=== PATIENT | male | born 1940 | race African-American/Black ===

== ENCOUNTER → 2018-09-18 | Day surgery (SDC) | payer MEDICARE, BC ==
[~2018-09-18] MED LIST: ASPIR 8181 MG PO; ATENOLOL-CHLOR1 EAC1 PO; CRESTOR10 MG PO; DEXAMETHASONE SOD PHOS INJ 4 MG/ML VIAL ONE; EPHEDRINE SULFATE INJ 50 MG/10 ML SYR ONE; FENTANYL CITRATE/PF 100MCG/2 ML INJ ONE; IOPAMIDOL 610MG/1ML 300 MG/ML VIAL IV ONE; IPRATROPIUM BROMIDE; KETOROLAC TROMETHAMINE 30 MG/ML VIAL ONE; LEVOFLOXACIN 500MG/D5W 100ML 100 ML IV ONE; LIDOCAINE HCL 2% LOCAL INJ 5 ML SDV VIAL INJ ONE; LOSARTAN POTASS25 MG PO; METFORMIN HCL500 MG PO; MIDAZOLAM HCL 2 MG/2 ML VIAL ONE; ONDANSETRON HCL INJ 2 MG/ML VIAL ONE; PANTOPRAZOLE SO40 MG PO; POTASSIUM CHLO10 ME1 PO; PROPOFOL IV EMULSION 10 MG/ML 20 ML VIAL ONE; SEVOFLURANE INHAL SOLN 250 ML PEN BTL ONE
--- OUTSIDE RECORDS SUMMARY | 2018-09-18 10:15 | XMS REPORT | Clinical Summary ---
Author Author [facility] Organization [facility] Address Unknown Phone Unavailable Care Team Providers Care Etcher [employer] Name Role Phone Jacob Aparicio MD PCP Allergies Comments Active Allergy Reactions Severity Noted Date Penicillins Rash High 01/21/2016 Medications End Date Status Medication Sig Dispensed Refills Start Date Active aspirin 81 mg chewable aspirin 81 mg 0 tablet chewable 1 tablet Active tamsulosin (FLOMAX) 0.4 Take 1 30 capsule 0 mg capsule,extended capsule (0.4 8 release 24hr mg total) by mouth daily. 10/09/2018 Active metFORMIN (FORTAMET) 500 Take 1 tablet 90 tablet 1 mg 24 hr tablet (500 mg 8 total) by mouth daily with breakfast for 90 days. Active rosuvastatin (CRESTOR) 40 Take 1 tablet 90 tablet 1 MG tablet (40 mg total) 8 by mouth daily. Active potassium chloride Take 1 tablet 180 tablet 1 (K-DUR,KLOR-CON) 10 MEQ (10 mEq 8 CR tablet total) by mouth 2 (two) times a day. Active atenolol-chlorthalidone Take 1 tablet 90 tablet 1 (TENORETIC) 50-25 mg per by mouth 8 tablet daily. Active blood-glucose meter Test twice a 100 each 11 (CONTOUR NEXT ONE METER) day 8 miscIndications: Type 2 diabetes mellitus without complication, without long-term current use of insulin (HCC) Active blood sugar diagnostic Test twice a 100 strip 11 strips (CONTOUR NEXT TEST day 8 STRIPS) strip test stripsIndications: Type 2 diabetes mellitus without complication, without long-term current use of insulin (HCC) Active lancets (ULTRA THIN Test twice a 100 each 11 11/01/201 LANCETS) 30 gauge day 8 miscIndications: Type 2 diabetes mellitus without complication, without long-term current use of insulin ([facility]) Active losartan (COZAAR) 25 MG TAKE 1 30 tablet 0 tablet TABLET(25 MG) 8 BY MOUTH DAILY 2018 Discontinued rosuvastatin (CRESTOR) 40 Take 1 90 tablet 1 MG tablet tablet(s) 7 every day by oral route for 90 days. 2018 Discontinued potassium chloride Take 1 tablet 180 tablet 1 (K-DUR,KLOR-CON) 10 MEQ (10 mEq 7 CR tablet total) by mouth 2 (two) times a day. 2018 Discontinued atenolol-chlorthalidone Take 1 90 tablet 1 (TENORETIC) 50-25 mg per tablet(s) 7 tablet every day by oral route for 90 days. 06/12/2018 Discontinued sildenafil (REVATIO) 20 Take 5 60 tablet 11 mg tablet tablets (100 7 mg total) by mouth daily as needed (E.D.). 2018 Discontinued lisinopril Take 1 tablet 30 tablet 0 (PRINIVIL,ZESTRIL) 2.5 mg (2.5 mg 7 tablet total) by mouth daily. 05/17/2018 Discontinued atenolol-chlorthalidone Take 1 90 tablet 1 (TENORETIC) 50-25 mg per tablet(s) 8 tablet every day by oral route for 90 days. 07/11/2018 Discontinued lisinopril Take 1 tablet 30 tablet 0 (PRINIVIL,ZESTRIL) 2.5 mg (2.5 mg 8 tablet total) by mouth daily. 05/17/2018 Discontinued potassium chloride Take 1 tablet 180 tablet 1 (K-DUR,KLOR-CON) 10 MEQ (10 mEq 8 CR tablet total) by mouth 2 (two) times a day. 05/17/2018 Discontinued rosuvastatin (CRESTOR) 40 Take 1 90 tablet 1 MG tablet tablet(s) 8 every day by oral route for 90 days. 07/11/2018 Discontinued rosuvastatin (CRESTOR) 40 TAKE 1 TABLET 90 tablet 1 MG tablet BY MOUTH 8 EVERY DAY 07/11/2018 Discontinued potassium chloride TAKE 1 TABLET 180 tablet 1 (K-DUR,KLOR-CON) 10 MEQ BY MOUTH TWO 8 CR tablet TIMES DAILY 07/18/2018 Discontinued atenolol-chlorthalidone TAKE 1 TABLET 90 tablet 1 (TENORETIC) 50-25 mg per BY MOUTH 8 tablet EVERY DAY 08/08/2018 Discontinued lisinopril Take 1 tablet 90 tablet 1 (PRINIVIL,ZESTRIL) 2.5 mg (2.5 mg 8 tablet total) by mouth daily. 09/10/2018 Discontinued losartan (COZAAR) 25 MG Take 1 tablet 30 tablet 0 tablet (25 mg total) 8 by mouth daily. 08/20/2018 methylPREDNISolone follow 21 tablet 0 (MEDROL, LEYLA,) 4 mg package 8 tabletIndications: directions Chronic cough 09/14/2018 benzonatate (TESSALON) Take 1 30 capsule 0 200 MG capsule (200 8 capsuleIndications: mg total) by Chronic cough mouth 3 (three) times a day as needed for cough for up to 30 days. Active Problems Problem Noted Date BMI 22.0-22.9, adult 07/11/2018 Need for immunization against influenza 07/11/2018 BPH with urinary obstruction 2018 BMI 23.0-23.9, adult 2018 Influenza vaccination administered at current visit 07/03/2017 Erectile dysfunction 07/03/2017 Impacted cerumen of right ear 2017 Pneumococcal vaccination administered at current visit 2017 Leukopenia 2017 Gastroesophageal reflux disease without esophagitis 2017 Type 2 diabetes mellitus without complication, without long-term current 2017 use of insulin Overview: iet controlled Common cold 10/06/2013 Benign essential HTN 09/06/2011 Mixed hyperlipidemia 09/06/2011 Encounters Care Team Description Date Type Specialty Jacob Aparicio MD 09/10/2018 Refill Family Medicine Robby Lewis MD Enlarged prostate with urinary obstruction 09/09/2018 Hospital Radiology Encounter Jacob Aparicio MD Chronic cough 08/19/2018 Hospital Radiology Encounter Robby Lewis MD Enlarged prostate with urinary obstruction (Primary Dx) 08/19/2018 Transcribe Access Orders Mily Monroe MA Type 2 diabetes mellitus without complication, without long-term current use of insulin (HCC) (Primary Dx); Chronic cough 08/15/2018 Orders Only [facility] Medicine Aida Quan MA 08/14/2018 Telephone [facility] Medicine Mily Monroe MA 08/08/2018 Orders Only Family Medicine Mily Monroe MA 08/08/2018 Orders Only Family Medicine Rajni Ayoub MA 07/18/2018 Telephone [facility] Medicine Rajni Ayoub MA 07/18/2018 Refill Family Medicine Charlene Polo NP Benign essential HTN (Primary Dx); Type 2 diabetes mellitus without complication, without long-term current use of insulin; BPH with urinary obstruction; Mixed hyperlipidemia; BMI 22.0-22.9, adult; Need for immunization against influenza 07/11/2018 Office Visit Family Medicine Jacob Aparicio MD 07/04/2018 Orders Only Family Medicine Aida Quan MA 06/20/2018 Telephone Family Medicine Jacob Aparicio MD Abnormal weight loss (Primary Dx) 06/12/2018 Office Visit Family Jacob Tsai MD 05/17/2018 Refill Family Medicine Jacob Aparicio MD Cyst, jaw 03/05/2018 Hospital Radiology Encounter Rajni Ayoub MA Cyst, jaw (Primary Dx) 02/28/2018 Orders Only [facility] Medicine Mily Monroe MA Essential hypertension, benign (Primary Dx) 02/27/2018 Orders Only Family Jacob Tsai MD Cyst, jaw (Primary Dx) 02/27/2018 Orders Only Family Jacob Tsai MD 02/27/2018 Telephone Family Jacob Tsai MD Benign essential HTN (Primary Dx); Type 2 diabetes mellitus without complication, without long-term current use of insulin; BPH with urinary obstruction; Mixed hyperlipidemia; BMI 23.0-23.9, adult 2018 Office Visit Family Medicine after 09/17/2017 Immunizations Name Dates Previously Given Next Due FLUZONE HIGH-DOSE PF 07/11/2018, 07/03/2017, 07/19/2016 Influenza Split 09/19/2011 Influenza Trivalent 10/01/2012, 08/26/2010 Pneumococcal Conjugate 11/03/2015 13-Valent Pneumococcal 02/16/2009 Polysaccharide Family History Medical History Relation Name Comments Cancer Father Diabetes Mother Relation Name Status Comments Father lung Mother Alive Social History Date Tobacco Use Types Packs/Day Years Used Never Smoker Smokeless Tobacco: Never Used Alcohol Use Drinks/Week oz/Week Comments No Sex Assigned at Date Recorded Not on file Industry Job Start Date Occupation Not on file Not on file Not on file Travel End Travel History Travel Start No recent travel history available. Last Filed Vital Signs Time Taken Vital Sign Reading 07/11/2018 2:03 PM CDT Blood Pressure 147/80 07/11/2018 2:03 PM CDT Pulse 66 07/11/2018 2:03 PM CDT Temperature 36.7 C (98 F) 07/11/2018 2:03 PM CDT Respiratory Rate 16 07/11/2018 2:03 PM CDT Oxygen Saturation 98% - Inhaled Oxygen - Concentration 07/11/2018 2:03 PM CDT Weight 74.3 kg (163 lb 12.8 oz) 07/11/2018 2:03 PM CDT Height 182.9 cm (6') 07/11/2018 2:03 PM CDT Body Mass Index 22.22 Plan of Treatment Care Team Description Date Type Specialty Jacob Aparicio MD [address] [place] [address] 10/01/2018 Office Visit Family Medicine Health Maintenance Due Date Last Done Comments SHINGRIX VACCINE (1 of 2) 01/02/1992 ZOSTER VACCINE 2002 DIABETIC RETINAL EYE EXAM 12/27/2018 12/27/2017 DIABETIC FOOT EXAM 2019 2018, 2018 URINE MICROALBUMIN 07/04/2019 07/04/2018, 06/12/2018, 12/21/2017, Additional history exists PNEUMOCOCCAL Completed 02/16/2009, 02/16/2009 POLYSACCHARIDE VACCINE AGE 65 AND OVER PNEUMOCOCCAL-13 Completed 11/03/2015 INFLUENZA VACCINE Completed 07/11/2018, 07/03/2017, 07/19/2016, Additional history exists Procedures Comments Procedure Name Priority Date/Time Associated Diagnosis US PROSTATE Routine 09/09/2018 Enlarged prostate with 11:30 AM OUTSOLE SPLICER urinary obstruction XR CHEST 2 VW Routine 08/19/2018 Chronic cough 3:45 PM OUTSOLE SPLICER HEMOGLOBIN A1C Routine 07/04/2018 9:11 AM CDT CBC WITH PLATELET AND Routine 07/04/2018 DIFFERENTIAL 9:11 AM CDT URINALYSIS, AUTOMATED Routine 07/04/2018 WITH MICROSCOPY 9:11 AM CDT MICROALBUMIN / CREATININE Routine 07/04/2018 URINE RATIO 9:11 AM CDT HEPATIC FUNCTION PANEL Routine 07/04/2018 9:11 AM CDT BASIC METABOLIC PANEL Routine 07/04/2018 9:11 AM CDT LIPID PANEL Routine 07/04/2018 9:11 AM CDT THYROID STIMULATING Routine 06/12/2018 HORMONE 9:02 AM CDT CBC WITH PLATELET AND Routine 06/12/2018 BPH with urinary DIFFERENTIAL 9:02 AM CDT obstruction HEMOGLOBIN A1C Routine 06/12/2018 Type 2 diabetes mellitus 9:02 AM CDT without complication, without long-term current use of insulin MICROALBUMIN / CREATININE Routine 06/12/2018 Type 2 diabetes mellitus URINE RATIO 9:02 AM CDT without complication, without long-term current use of insulin HEPATIC FUNCTION PANEL Routine 06/12/2018 Mixed hyperlipidemia 9:02 AM CDT LIPID PANEL Routine 06/12/2018 Mixed hyperlipidemia 9:02 AM CDT BASIC METABOLIC PANEL Routine 06/12/2018 Benign essential HTN 9:[address] MAXILLOFACIAL WO Routine 03/05/2018 Cyst, jaw CONTRAST 12:52 PM CDT URINALYSIS, AUTOMATED Routine 2018 WITH MICROSCOPY 2:22 PM CDT PROSTATE SPECIFIC ANTIGEN Routine 2018 BPH with urinary 2:22 PM CDT obstruction URINE CULTURE Routine 2018 2:22 PM CDT CBC WITH PLATELET AND Routine 12/21/2017 Other decreased white DIFFERENTIAL 8:54 AM OUTSOLE SPLICER blood cell (WBC) count MICROALBUMIN / CREATININE Routine 12/21/2017 Type 2 diabetes mellitus URINE RATIO 8:54 AM OUTSOLE SPLICER without complication, without long-term current use of insulin BASIC METABOLIC PANEL Routine 12/21/2017 Benign essential HTN 8:54 AM OUTSOLE SPLICER HEMOGLOBIN A1C Routine 12/21/2017 Type 2 diabetes mellitus 8:54 AM OUTSOLE SPLICER without complication, without long-term current use of insulin after 09/17/2017 Results * US Prostate (09/09/2018 11:30 AM OUTSOLE SPLICER) Narrative Performed At PROCEDURE:US PROSTATE RADIANT CLINICAL HISTORY:N40.1 Benign prostatic hyperplasia with lower urinary tract symptoms, N13.8 Other obstructive and reflux uropathy, N40.1 COMPARISON:None. TECHNIQUE: A transrectal examination of the prostate gland was performed in transverse and sagittal views with color-flow Doppler interrogation. The seminal vesicles were also interrogated. FINDINGS: The prostate gland measures 6.2 x 5.1 x 3.6. The prostatic parenchyma is heterogeneous in echotexture, with a few small cystic spaces and coarse calcifications. There is no definite focal suspicious solid mass identified within the limitations of sonographic technique. There is no gross abnormality of the visualized seminal vesicles. IMPRESSION: Prostatomegaly, likely related to benign prostatic hyperplasia. No definite suspicious solid mass. [facility]-[id number] Procedure Note Interface, Radiology Results Incoming - 09/09/2018 8:36 PM OUTSOLE SPLICER PROCEDURE: US PROSTATE CLINICAL HISTORY: N40.1 Benign prostatic hyperplasia with lower urinary tract symptoms, N13.8 Other obstructive and reflux uropathy, N40.1 COMPARISON: None. TECHNIQUE: A transrectal examination of the prostate gland was performed in transverse and sagittal views with color-flow Doppler interrogation. The seminal vesicles were also interrogated. FINDINGS: The prostate gland measures 6.2 x 5.1 x 3.6. The prostatic parenchyma is heterogeneous in echotexture, with a few small cystic spaces and coarse calcifications. There is no definite focal suspicious solid mass identified within the limitations of sonographic technique. There is no gross abnormality of the visualized seminal vesicles. IMPRESSION: Prostatomegaly, likely related to benign prostatic hyperplasia. No definite suspicious solid mass. [facility]-[id number] Performing Organization Address [facility] Phone Number [facility] [address] [place] [address] * XR Chest 2 Vw (08/19/2018 3:45 PM OUTSOLE SPLICER) Narrative Performed At [facility]INICAL IND[facility]:R05 Cough, chronic cough COMPARISON:10/03/2016 IMPRESSION: The lungs are clear without acute cardiopulmonary disease. Heart and mediastinal contours are within normal limits. Bones are unremarkable. No active disease or change. Thank you for allowing us to participate in the care of your patient. [facility]-[id number] Procedure Note Interface, Radiology Results Incoming - 08/19/2018 3:51 PM OUTSOLE SPLICER XR CHEST 2 VW CLINICAL INDICATION: R05 Cough, chronic cough COMPARISON: 10/03/2016 IMPRESSION: The lungs are clear without acute cardiopulmonary disease. Heart and mediastinal contours are within normal limits. Bones are unremarkable. No active disease or change. Thank you for allowing us to participate in the care of your patient. [facility]-[id number] Performing Organization Address [facility] Hospital[facility] Phone Number [facility] [address] [place] [address] * Microalbumin / creatinine urine ratio (07/04/2018 9:11 AM CDT) Only the most recent of 3 results within the time period is included. Creatinine, urine, random 114 20 - 320 mg/dL [facility] [place] Microalbumin, urine 1.9 See Note: mg/dL [facility] Comment: [place] Reference Range: Reference Range Not established Microalbumin/creatinine 17 <30 mcg/mg creat [facility] ratio Comment: [place] The ADA defines abnormalities in albumin excretion as follows: Category Result (mcg/mg creatinine) Normal <30 Microalbuminuria 30-299 Clinical albuminuria > GM=278 The ADA recommends that at least two of three specimens collected within a 3-6 month period be abnormal before considering a patient to be within a diagnostic category. Narrative Performed At FASTING:YES [facility] FASTING: YES Resulting Agency Comment Performing Organization Information: Site ID: [id number] Name: [facility] Address: [address] [place] [phone] Director: Deyanira Quiroz Performing Organization Address City/[facility] Phone Number [employer] [place] [address] * Urinalysis, automated with microscopy (07/04/2018 9:11 AM CDT) Only the most recent of 2 results within the time period is included. Color, UA YELLOW YELLOW [facility] [place] Appearance CLEAR CLEAR [facility] [place] Specific gravity, urine 1.024 1.001 - 1.035 [facility] [place] pH, urine 7.0 5.0 - 8.0 [facility] [place] Glucose, urine NEGATIVE NEGATIVE [facility] [place] Bilirubin, UA NEGATIVE NEGATIVE [facility] [place] Ketones, UA NEGATIVE NEGATIVE [facility] [place] Occult blood, urine NEGATIVE NEGATIVE [facility] [place] Protein, UA NEGATIVE NEGATIVE [facility] [place] Nitrite, UA NEGATIVE NEGATIVE [facility] [place] Leukocyte esterase, UA NEGATIVE NEGATIVE [facility] [place] WBC, UA 0-5 < OR=5 /HPF [facility] [place] RBC, UA 0-2 < OR=2 /HPF [facility] [place] Squamous epithelial NONE SEEN < OR=5 /HPF [facility] cells, [facility] [place] Bacteria, UA NONE SEEN NONE SEEN /HPF [facility] [place] Hyaline casts, UA NONE SEEN NONE SEEN /LPF [facility] [place] Narrative Performed At FASTING:YES [facility] FASTING: YES Resulting Agency Comment Performing Organization Information: Site ID: [id number] Name: [facility] Address: [address] [place] [phone] Director: Deyanira Quiroz Performing Organization Address City/[facility] Hospitalcode Phone Number [employer] [facility] [place] [address] [place] [address] * CBC with platelet and differential (07/04/2018 9:11 AM CDT) Only the most recent of 3 results within the time period is included. WBC 3.3 (L) 3.8 - 10.8 Thousand/uL [facility] [place] RBC 5.21 4.20 - 5.80 Million/uL [facility] [place] HGB 15.0 13.2 - 17.1 g/dL [facility] [place] HCT 44.6 38.5 - 50.0 % [facility] [place] MCV 85.6 80.0 - 100.0 fL [facility] [place] MCH 28.8 27.0 - 33.0 pg [facility] [place] MCHC 33.6 32.0 - 36.0 g/dL [facility] [place] RDW 13.6 11.0 - 15.0 % [facility] [place] Platelet count 203 140 - 400 Thousand/uL [facility] [place] MPV 10.0 7.5 - 12.5 fL [facility] [place] Neutrophils, absolute 2,096 1,500 - 7,800 cells/uL [facility] [place] Lymphocytes, absolute 838 (L) 850 - 3,900 cells/uL [facility] [place] Monocytes, absolute 287 200 - 950 cells/uL [facility] [place] Eosinophils, absolute 40 15 - 500 cells/uL [facility] [place] Basophils, absolute 40 0 - 200 cells/uL [facility] [place] Neutrophils 63.5 % [facility] [place] Lymphocytes 25.4 % [facility] [place] Monocytes 8.7 % [facility] [place] Eosinophils 1.2 % [facility] [place] Basophils + RC 1.2 % [facility] [place] Narrative Performed At FASTING:YES [facility] FASTING: YES Resulting Agency Comment Performing Organization Information: Site ID: [id number] Name: [facility] Address: [address] [place] [phone] Director: Deyanira Quiroz Performing Organization Address City/State/Zipcode Phone Number [employer] [address] [address] * Hemoglobin A1c (07/04/2018 9:11 AM CDT) Only the most recent of 3 results within the time period is included. Hemoglobin A1C 7.2 (H) <5.7 % of total Hgb [facility] Comment: [place] For someone without known diabetes, a hemoglobin A1c value of 6.5% or greater indicates that they may have diabetes and this should be confirmed with a follow-up test. For someone with known diabetes, a value <7% indicates that their diabetes is well controlled and a value greater than or equal to 7% indicates suboptimal control. A1c targets should be individualized based on duration of diabetes, age, comorbid conditions, and other considerations. Currently, no consensus exists regarding use of hemoglobin A1c for diagnosis of diabetes for children. Narrative Performed At FASTING:YES [facility] FASTING: YES Resulting Agency Comment Performing Organization Information: Site ID: [id number] Name: [facility] Address: [address] [place] [phone] Director: Deyanira Quiroz Performing Organization Address [facility] Phone Number [employer] [place] [address] * Hepatic function panel (07/04/2018 9:11 AM CDT) Only the most recent of 2 results within the time period is included. Protein 6.5 6.1 - 8.1 g/dL [facility] [place] Albumin, S 3.7 3.6 - 5.1 g/dL [facility] [place] Globulin, total 2.8 1.9 - 3.7 g/dL (calc) [facility] [place] Albumin/globulin ratio 1.3 1.0 - 2.5 (calc) [facility] [place] Total bilirubin 0.5 0.2 - 1.2 mg/dL [facility] [place] Bilirubin direct 0.1 < OR=0.2 mg/dL [facility] [place] Bilirubin, indirect 0.4 0.2 - 1.2 mg/dL (calc) [facility] [place] Alkaline phosphatase 44 40 - 115 U/L [facility] [place] AST 13 10 - 35 U/L [facility] [place] ALT 11 9 - 46 U/L [facility] [place] Narrative Performed At FASTING:YES [facility] FASTING: YES Resulting Agency Comment Performing Organization Information: Site ID: [id number] Name: [facility] Address: [address] [place] [phone] Director: Deyanira Quiroz Performing Organization Address [facility] Phone Number [employer] [address] [address] * Lipid panel (07/04/2018 9:11 AM CDT) Only the most recent of 2 results within the time period is included. Cholesterol, total 242 (H) <200 mg/dL [facility] [place] HDL cholesterol 58 >40 mg/dL [facility] [place] Triglycerides 99 <150 mg/dL [facility] [place] LDL cholesterol 163 (H) mg/dL (calc) [facility] calculated Comment: [place] Reference range: <100 Desirable range <100 mg/dL for primary prevention; <70 mg/dL for patients with CHD or diabetic patients with > or=2 CHD risk factors. LDL-C is now calculated using the Pita calculation, which is a validated novel method providing better accuracy than the Friedewald equation in the estimation of LDL-C. Jeramie SS et al. TOMAS. 2013;310(19): 7293-2261 (http://education.GoSquared.25eight/faq/KNI638) Cholesterol/HDL ratio 4.2 <5.0 (calc) [facility] [place] Non-HDL cholesterol 184 (H) <130 mg/dL (calc) [facility] Comment: [place] For patients with diabetes plus 1 major ASCVD risk factor, treating to a non-HDL-C goal of <100 mg/dL (LDL-C of <70 mg/dL) is considered a therapeutic option. Narrative Performed At FASTING:YES [facility] FASTING: YES Resulting Agency Comment Performing Organization Information: Site ID: [id number] Name: [facility] Address: [address] [place] [phone] Director: Deyanira Quiroz Performing Organization Address City/State/Zipcode Phone Number [employer] [facility] [place] [address] [place], [place] [id number] * Basic metabolic panel (07/04/2018 9:11 AM CDT) Only the most recent of 3 results within the time period is included. Glucose 140 (H) 65 - 99 mg/dL [facility] Comment: [place] Fasting reference interval For someone without known diabetes, a glucose value >125 mg/dL indicates that they may have diabetes and this should be confirmed with a follow-up test. BUN, whole blood 18 7 - 25 mg/dL [facility] Creatinine 0.82 0.70 - 1.18 mg/dL [facility] Comment: [place] For patients >49 years of age, the reference limit for Creatinine is approximately 13% higher for people identified as -Omani. EGFR Non-Afr. [place]i 86 > OR=60 mL/min/1.73m2 [facility] [place] EGFR 100 > OR=60 mL/min/1.73m2 [facility] [place] BUN/creatinine ratio NOT APPLICABLE 6 - 22 (calc) [facility] Sodium 138 135 - 146 mmol/L [facility] [place] Potassium 3.5 3.5 - 5.3 mmol/L [facility] [place] Chloride 104 98 - 110 mmol/L [facility] [place] CO2 27 20 - 32 mmol/L [facility] [place] Calcium 8.8 8.6 - 10.3 mg/dL [facility] [place] Narrative Performed At FASTING:YES [facility] FASTING: YES Resulting Agency Comment Performing Organization Information: Site ID: [id number] Name: [facility] Address: [address] [place] [phone] Director: Deyanira Quiroz Performing Organization Address [facility] Phone Number [facility] [place] [address] [place] [phone] * Thyroid stimulating hormone (06/12/2018 9:02 AM CDT) TSH 1.71 0.40 - 4.50 mIU/L [facility] [place] Narrative Performed At FASTING:YES [facility] FASTING: YES Resulting Agency Comment Performing Organization Information: Site ID: [id number] Name: [facility] Address: [address] [place] [id number] Director: Deyanira Quiroz Performing Organization Address [facility] Phone Number DANTE [facility] [address] [place] [id number] * CT Maxillofacial Wo Contrast (03/05/2018 12:52 PM CDT) Narrative Performed At EXAMINATION: CT MAXILLOFACIAL WO CONTRAST [facility] CLINICAL HISTORY: M27.40 Unspecified cyst of jaw, N2740 COMPARISON:None TECHNIQUE: Axial noncontrastenhanced images through the maxillofacial bones were obtained with bone and soft tissue algorithms. Coronal and sagittal reconstructions were also performed.CT imaging was performed with iterative reconstruction technique and/or automated exposure control to reduce radiation dose. FINDINGS: The visualized paranasal sinuses are clear other than mild mucosal thickening in the right frontal sinus. There is no drainage pathway obstruction. The maxillofacial bones are intact without acute fracture. Note is made of a cyst in the right maxilla in the right midline maxilla above the central and lateral right incisors. This appears to be a benign osseous is secondary to the underlying dentition/roots. This measures 2.1 cm in transverse dimension by 1.5 cm in AP dimension. There are some hyperdensities in the lower part of the cyst from calcification/ossification. There are some mild expansion of the maxilla at this level. The cyst extends to the midline. There is demineralization anterior to the cyst. No other cystic changes identified in the axilla. There are some chronic appearing periapical lucencies noted around some of the remaining teeth. Soft tissues shows no acute laceration, hematoma or soft tissue mass. Orbits are intact. There is intracranial regions are intact. IMPRESSION: There is a 2.1 cm cyst in the midline and right maxilla with bony expansion. 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 [facility]-[id number] Procedure Note Hm Interface, Radiology Results Incoming - 03/05/2018 7:02 PM CDT EXAMINATION: CT MAXILLOFACIAL WO CONTRAST CLINICAL HISTORY: M27.40 Unspecified cyst of jaw, N2740 COMPARISON: None TECHNIQUE: Axial noncontrast enhanced images through the maxillofacial bones were obtained with bone and soft tissue algorithms. Coronal and sagittal reconstructions were also performed. CT imaging was performed with iterative reconstruction technique and/or automated exposure control to reduce radiation dose. FINDINGS: The visualized paranasal sinuses are clear other than mild mucosal thickening in the right frontal sinus. There is no drainage pathway obstruction. The maxillofacial bones are intact without acute fracture. Note is made of a cyst in the right maxilla in the right midline maxilla above the central and lateral right incisors. This appears to be a benign osseous is secondary to the underlying dentition/roots. This measures 2.1 cm in transverse dimension by 1.5 cm in AP dimension. There are some hyperdensities in the lower part of the cyst from calcification/ossification. There are some mild expansion of the maxilla at this level. The cyst extends to the midline. There is demineralization anterior to the cyst. No other cystic changes identified in the axilla. There are some chronic appearing periapical lucencies noted around some of the remaining teeth. Soft tissues shows no acute laceration, hematoma or soft tissue mass. Orbits are intact. There is intracranial regions are intact. IMPRESSION: There is a 2.1 cm cyst in the midline and right maxilla with bony expansion. 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 [facility]-[id number] Performing Organization Address City/State/Zipcode Phone Number [facility] [address] [place] [address] * Urine culture (2018 2:22 PM CDT) Source URINE [facility] [place] Status FINAL [facility] Result SEE NOTEComment: No Growth [facility] Comment SEE NOTE [facility] Comment: [facility] We received a preserved urine culture transport tube and performed a urine culture. If this is not what you intended to order, please contact your local customer loyalty representative immediately so that we can adjust our billing appropriately. You may also inquire about alternative or additional testing. Resulting Agency Comment Performing Organization Information: Site ID: [id number] Name: [facility] Address: [address] [place] [id number] Director: Deyanira Quiroz MD Performing Organization Address City/[facility] Phone Number DANTE [employer] [place] [address] [place] [phone] * Prostate specific antigen (2018 2:22 PM CDT) PSA 3.7 < OR=4.0 ng/mL [employer] Comment: [facility] The total PSA value from this assay system is standardized against the WHO standard. The test result will be approximately 20% lower when compared to the equimolar-standardized total PSA (Angle Elpidio). Comparison of serial PSA results should be interpreted with this fact in mind. This test was performed using the Siemens chemiluminescent method. Values obtained from different assay methods cannot be used interchangeably. PSA levels, regardless of value, should not be interpreted as absolute evidence of the presence or absence of disease. Specimen Blood Resulting Agency Comment Performing Organization Information: Site ID: [id number] Name: [facility] Address: [address] [place] [id number] Director: Deyanira Quiroz MD Performing Organization Address [facility] Phone Number [employer] [address] [address] after 09/17/2017 Insurance Payer Benefit Subscriber ID Type Phone Address Plan / Group MEDICARE MEDICARE xxxxxxxxxxx Medicare [place], [place] PART A AND B BCBS BCBS xxxxxxxxxxxx PPO CHOICE PPO/RADHA L EMPL PPO Advance Directives Patient has advance care planning documents on file. For more information, joanna lopez contact: Malcolm Huntley [address] [place] [address]
--- NOTE | 2018-09-18 11:53 | Diagnostic Imaging Report ---
EXAM: XR CHEST 2 VIEWS DATE: 09/18/2018 12:00 AM INDICATION: pre-op, prostate cancer COMPARISON: None FINDINGS: Lines and Tubes: None Heart and Mediastinum: No acute cardiomediastinal findings. Lungs and Pleura: No significant pleural effusion, pneumothorax, or focal consolidation. Minimal opacities in the lung bases statistically represent atelectasis, however, infectious process could have a similar appearance. Bones and Soft Tissues: No acute findings. IMPRESSION: 1. No acute cardiopulmonary findings. Signed by: Dr. Nicolás Lopez MD on 09/18/2018 11:50 AM
--- NOTE | 2018-09-18 14:42 | Operative Report ---
DATE OF PROCEDURE: September 18, 2018 PREOPERATIVE DIAGNOSES 1. Benign prostatic hypertrophy. 2. Prostatic obstruction. POSTOPERATIVE DIAGNOSES 1. Benign prostatic hypertrophy. 2. Prostatic obstruction. OPERATIONS PERFORMED 1. Cystourethroscopy. 2. Bilateral retrograde pyelograms. WATERSHED COORDINATOR: Dr. Hansen. ANESTHETIC: General. Mr. Quiroz is a 78-year-old male who presented with a chief complaint of lower urinary tract obstructive symptoms. Rectal exam showed an enlarged prostate gland about 50 g and firm. His PSA was normal. This patient was placed on the table in the lithotomy position and was prepped and draped in a sterile manner after satisfactory anesthesia. A number 23-Romanian cystoscope was used, and cystourethroscopy was performed and it was noted that the urethra was normal. The prostatic urethra was about 4.5 cm, bilobar and nonocclusive. Cystoscopy was then performed using both the right-angle and the Foroblique lens, and it was noted that the bladder mucosa was normal. Both ureteral orifices were seen and were within normal position, configuration, efflux. The bladder wall was moderately trabeculated. Left retrograde pyelogram was performed using a number 8 bulb-tipped ureteral catheter inserted at the left ureteral orifice, and 5 mL of contrast material was injected. The retrograde performed was normal. 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 The bladder was drained, cystoscope removed, and patient taken to the recovery room in satisfactory condition. Plans for this patient are to be placed on Cipro 250 mg 1 twice a day for 1 week. Ultracet tablet 1 every 8 hours p.r.n. and was given 15. He is to return to the office in 1 week. Job#: [id number] EV
[2018-09-18 15:00] VITALS: BP 101/47
== END | disposition home or self-care (01) ==
LOC: OR 10:12
PROVIDERS: ATTEND Specialist
DX: N40.1 Benign prostatic hyperplasia with lower urinary tract symptoms (principal); N13.8 Other obstructive and reflux uropathy; I10 Essential (primary) hypertension; E11.9 Type 2 diabetes mellitus without complications; K21.9 Gastro-esophageal reflux disease without esophagitis; Z88.0 Allergy status to penicillin; Z79.82 Long term (current) use of aspirin; Z79.84 Long term (current) use of oral hypoglycemic drugs
CPT/HCPCS: 36415; 52005; 71046; 74420; 82948; 93005; C1758; J1100; J1885; J1956; J2001; J2250; J2405; J2704; Q9967